=== PATIENT | male | born 1980 | race Caucasian/White ===

== ENCOUNTER 2021-12-13 12:20 | Emergency (ER) | payer MEDICAID, SELFPAY ==
--- NOTE | 2021-12-13 12:22 | ED.URI ---
HPI - URI/Sore Throat General Chief Complaint: Upper Respiratory Infection Stated Complaint: sore throat and tongue lac Time Seen by Provider: 12/13/21 12:22 Source: patient, family and RN notes reviewed History of Present Illness HPI Narrative: Patient is a 41-year-old male who presents the urgent care with his significant other with complaints of sore throat for 1 week and a tongue laceration from a week and a half ago. Patient states he bit the end of his tongue and the laceration seems to be getting larger. Patient states he has been drinking Chloraseptic and using ibuprofen for his sore throat. Reports of subjective fever without nausea or vomiting. Denies of any known exposures. No other acute complaints. No acute distress noted. Patient aware of the plan of care. Some parts of this dictation were generated by voice recognition software and may contain typographical and/or grammatical inaccuracies. Related Data Allergies Allergy/AdvReac Type Severity Reaction Status Date / Time No Known Allergies Allergy Verified 12/13/21 12:37 Review of Systems Review of Systems: CONSTITUTIONAL: Denies fever, chills, or sweats. EYES: Denies visual changes, redness, or discharge. ENT: Denies rhinorrhea, congestion, or otalgia. Reports of a sore throat and a laceration to the tongue CARDIOVASCULAR: Denies chest pain, palpitations, or edema. RESPIRATORY: Denies cough or dyspnea. GASTROINTESTINAL: Denies abdominal pain, nausea, vomiting, or diarrhea. GENITOURINARY: Denies dysuria or hematuria. SKIN: Denies rash or itching. MUSCULOSKELETAL: Denies back pain, joint pain, or myalgia. NEUROLOGIC: Denies headache, numbness, or weakness. All other systems reviewed are negative, except as documented in HPI. PMFSH Comments At the time of my signature, I reviewed and agree with the nursing past medical, surgical, social, and family history. There is no relevant family history pertinent to the patient complaint. Exam Narrative: GENERAL: This is a well-nourished, well-developed patient, in no apparent distress. HEAD: normocephalic, atraumatic. EYES: PERRL. Sclera clear/white. Vision is grossly intact. EARS: External ears normal, auditory canals clear and without drainage, TMs normal without perforation. Hearing grossly intact. NOSE: External nose normal with no obvious nasal discharge, nares without redness, no rhinorrhea. THROAT: Mucous membranes moist, posterior pharynx clear. Pinpoint scattered petechiae to the posterior roof; 0.5 cm x 0.25 cm gaping superficial laceration to the under side tip of the tongue NECK: Neck supple, non-tender without lymphadenopathy CARDIOVASCULAR: Regular rate and rhythm without murmurs, gallops, or rubs. RESPIRATORY: Clear to auscultation. Breath sounds equal bilaterally. No wheezes, rales, or rhonchi. SKIN: warm, intact with no suspicious lesions or rash, good texture and turgor. NEURO: awake, alert, and oriented to person, place and time. There were no obvious focal neurologic abnormalities. EXTREMITIES: No clubbing, cyanosis, or edema. Course Course Level of Care: Express Care Visit Vital Signs Vital signs: Vital Signs Temperature 97.1 F L 12/13/21 12:26 Pulse Rate 84 12/13/21 12:26 Respiratory Rate 18 12/13/21 12:26 Blood Pressure 172/99 H 12/13/21 12:26 Pulse Oximetry 100 12/13/21 12:26 Temperature 97.1 F L 12/13/21 12:26 Pulse Rate 84 12/13/21 12:26 Respiratory Rate 18 12/13/21 12:26 Blood Pressure 172/99 H 12/13/21 12:26 Pulse Oximetry 100 12/13/21 12:26 Reviewed-patient is informed that they may have pre-hypertension or hypertension based on a blood pressure reading in the department. I recommend the patient call the primary care provider listed on their discharge instructions or a physician of their choice this week to arrange follow-up for further evaluation of possible pre-hypertension or hypertension. MDM - URI/Sore Throat MDM Narrative Medical decision megan
[2021-12-13 12:26] VITALS: BP 172/99; PULSE 84; RESP 18; TEMP 36.2; O2SAT 100
== END 2021-12-13 13:05 | disposition home or self-care (01) ==
PROVIDERS: Emergency Provider Nurse Practitioner Family
DX: S01.512A Laceration without foreign body of oral cavity, initial encounter (principal); W50.3XXA Accidental bite by another person, initial encounter; J02.9 Acute pharyngitis, unspecified
CPT/HCPCS: 87081; 87880; 99213; G0463

== ENCOUNTER 2024-11-11 08:44 | Emergency (ER) | payer OTHER, MEDICAID, SELFPAY ==
--- NOTE | ~2024-11-11 | CT_ITS ---
EXAMINATION: CT abdomen pelvis wo con DATE: 11/11/2024 09:37 INDICATION: Right flank pain. TECHNIQUE: Computed tomography (CT) of the abdomen and pelvis was performed without intravenous contr ast. Automated exposure control and iterative reconstruction technique were employed. The dose-length product was 973.20 mGy-cm. COMPARISON: None. FINDINGS: The visualized portions of lung bases demonstrate mild atelectasis. No pleural effusion. Th e heart size is normal. No pericardial effusion. There is a small sliding hiatal hernia. There is mil d bilateral gynecomastia. There is diffuse hepatic steatosis. The gallbladder, spleen, pancreas, adre nal glands, and left kidney are normal. There is a 2 mm stone in right kidney. There is mild right hy dronephrosis and hydroureter. There are two 2 mm stones at right ureterovesicular junction. There are no dilated loops of bowel. The appendix is normal. There are no pathologically enlarged lymph nodes. There is no free intraperitoneal fluid. There is mild thoracic and lumbar spondylosis. IMPRESSION: 1. Two 2 mm stones at right ureterovesicular junction with mild right hydronephrosis and hydroureter. 2. 2 mm nonobstructing right kidney stone. Reviewed, dictated and finalized at location B. IMPRESSION: 1. Two 2 mm stones at right ureterovesicular junction with mild right hydroneph rosis and hydroureter. 2. 2 mm nonobstructing right kidney stone.
[2024-11-11 08:46] VITALS: BP 170/123; PULSE 84; RESP 16; TEMP 36.6; O2SAT 100
--- NOTE | 2024-11-11 08:59 | ED.MALEGU ---
HPI - Male Genitourinary General Chief complaint: Urogenital-Male Stated complaint: flank pain Time Seen by Provider: 11/11/24 08:47 History of Present Illness HPI Narrative: Pt presents with right flank pain radiating to right groin for two days. Pt says the pain is constant but waxes and wanes in severity. Pt denies nausea or vomiting. Pt denies urinary symptoms. Related Data Allergies Allergy/AdvReac Type Severity Reaction Status Date / Time codeine Allergy Hives Verified 11/11/24 08:53 Review of Systems Review of Systems: All systems reviewed & are unremarkable except as noted in HPI and below Exam Const: General: healthy appearing (uncomfortable) Limitations: no limitations Resp: Effort & Inspection: normal respiratory effort Auscultation: clear to auscultation bilaterally Cardio: Rate: regular rate Rhythm: regular rhythm GI: GI Palp: Yes Soft to palpation and No Tenderness to palpation present (GI) Auscultation: normal bowel sounds : General: Yes CVA tenderness on the right Back/Spine/Pelvis: Back: CVA tenderness (right) Skin: General skin exam: normal color Rashes: no rashes Wounds: no wounds Neuro: General: patient oriented x3, moves all extremities and no meningeal signs Speech: normal speech Extrem: General: normal to inspection and no clubbing, cyanosis or edema Psych: Mental Status: mental status grossly normal Affect: normal affect Attitude: cooperative Course Vital Signs Vital signs: Vital Signs Temperature 97.8 F 11/11/24 08:46 Pulse Rate 84 11/11/24 08:46 Respiratory Rate 16 11/11/24 08:46 Blood Pressure 170/123 H 11/11/24 08:46 Pulse Oximetry 100 11/11/24 08:46 Oxygen Delivery Room Air 11/11/24 08:46 Temperature 97.8 F 11/11/24 08:46 Pulse Rate 84 11/11/24 11:07 Respiratory Rate 18 11/11/24 11:07 Blood Pressure 160/110 H 11/11/24 11:07 Pulse Oximetry 98 11/11/24 11:07 Oxygen Delivery Room Air 11/11/24 08:46 MDM - Male Genitourinary MDM Narrative Medical decision making narrative: Pt presents with right flank pain for two days. kidney stone very likely. could be UTi or pyelo, less likely AAA. will get UA labs and CT and treat pain. dilaudid did not help much, toradol helped pain. pt has 2 2mm stone at uvj. serafin send home on pain and nausea meds and flomax with urology follow up. Lab Data 11/11/24 09:05 11/11/24 09:05 Labs: Lab Results 11/11/24 11/11/24 Range/Units 09:05 09:30 WBC 14.6 H (4.5-10.0) K/mm3 RBC 5.29 (4.6-6.20) M/mm3 Hgb 15.7 (14.0-18.0) g/dL Hct 46.7 (42.0-52.0) % MCV 88.3 (80-100) fl MCH 29.7 (26-34) pg MCHC 33.6 (32-36) g/dl RDW 12.5 (11.5-14.5) % Plt Count 231 (150-375) k/mm3 MPV 10.9 H (7.4-10.4) fl Immature Gran % (Auto) 0.4 (0-0.5) % Neut % (Auto) 73.4 H (45.5-73.1) % Lymph % (Auto) 14.9 L (18.3-44.2) % Nash % (Auto) 9.9 H (2.6-8.5) % Eos % (Auto) 1.1 (0-4.4) % Baso % (Auto) 0.3 (0.2-1.2) % Lymph # (Auto) 2.17 (0.9-3.2) K/mm3 [place] # (Auto) 1.4 H (0.1-0.6) K/mm3 Eos # (Auto) 0.2 (0-0.3) K/mm3 Baso # (Auto) 0.0 (0.0-0.1) K/mm3 Abs Immat Gran (auto) 0.06 H (0.00-0.031) K/mm3 Absolute Neuts (auto) 10.7 H (1.3-6.7) K/mm3 Absolute Nucleated RBC 0.000 (0.0-0.012) K/mm3 Nucleated RBC % 0.0 (0.0-0.2) % PT 12.6 (11.1-14.7) Seconds INR 0.9 APTT 25.1 (22.3-36.8) Seconds Sodium 136 L (137-145) mmol/L Potassium 4.0 (3.4-5.0) mmol/L Chloride 100 (98-107) mmol/L Carbon Dioxide 28 (22-30) mmol/L Anion Gap 8 (4-12) mmol/L BUN 14 (9-20) mg/dL Creatinine 1.68 H (0.7-1.3) mg/dL Estim Creat Clear Calc 63 ml/min Estimated GFR 45 L (59 - ) Glucose 92 (65-110) mg/dL Calcium 9.2 (8.4-10.2) mg/dL Total Bilirubin 0.5 (0.2-1.3) mg/dL AST 25 (17-59) U/L ALT 34 (6-50) U/L Alkaline Phosphatase 95 (38-126) U/L Total Protein 7.0 (6.3-8.2) g/dL Albumin 4.2 (3.5-5.1) g/dL Lipase 167 (23-300) U/L Urine Color Yellow (Yellow) Urine Appearance Clear (Clear) Urine pH 7.0 (5.0-9.0) Ur Specific [place] 1.014 (1.001-1.035) Urine Protein Negative (Negative) mg/dL Urine Glucose (UA) Negative (Negative) mg/dL Urine Ketones Negative (Negative) mg/dL Ur Blood (Man) Negative (Negative) Urine Nitrate Negative (Negative) Urine Bilirubin Negative (Negative) Urine Urobilinogen 1.0 (<2.0) mg/dL Leukocyte Esterase Rfl Trace H (Negative) IDA/UL Urine RBC 0-2 (0-2) /hpf Urine WBC 0-5 (0-3) /hpf Ur Squamous Epith Cells None seen (Few) /hpf Urine Bacteria None seen /hpf Urine Casts 0-2 HIV 1&2 Ab/P24 Ag 4thGn Negative (Negative) Discharge Plan Discharge Clinical Impression: Ureterolithiasis Patient Disposition: Home, Self-Care Condition: Improved Instructions: Antibiotic Form, Kidney Stones (ED), How to Strain Your Urine (ED) Patient Language: Croatian Prescriptions: New ondansetron 4 mg tablet,disintegrating 4 mg PO Q8H PRN (Reason: nausea and vomiting) Qty: 14 0RF hydrocodone-acetaminophen 5-325 mg tablet 1 tablet PO Q6H PRN (Reason: pain) Qty: 14 0RF tamsulosin [Flomax] 0.4 mg capsule 0.4 mg PO DAILY Qty: 10 0RF No Action chlorhexidine gluconate 0.12 % mouthwash 15 ml buccal BID Qty: 118 0RF Follow-up/Referrals: Anant Qureshi MD [Physician] - PHYSICIAN,COSMETICS AND TOILETRIES SALESPERSON [Non-Staff] -
[2024-11-11] MEDS: SODIUM CHLORIDE 0.9% IV 1,000 ML 999 ML IV CONT (09:09)
[2024-11-11 09:10] LABS: Basophils Percent Auto 0.3 % (0.2-1.2); Eosinophils Absolute Auto 0.2 K/mm3 (0-0.3); Eosinophils Percent Auto 1.1 % (0-4.4); Hematocrit 46.7 % (42.0-52.0); Hemoglobin 15.7 g/dL (14.0-18.0); Immature Granulocyte Absolute 0.06 K/mm3 (0.00-0.031); Immature Granulocyte Percent A 0.4 % (0-0.5); Lymphocytes Absolute Auto 2.17 K/mm3 (0.9-3.2); Lymphocytes Percent Auto 14.9 % (18.3-44.2); Mean Corpuscular HGB Conc 33.6 g/dl (32-36); Mean Corpuscular Hemoglobin 29.7 pg (26-34); Mean Corpuscular Volume 88.3 fl (80-100); Mean Platelet Volume 10.9 fl (7.4-10.4); Monocytes Absolute Auto 1.4 K/mm3 (0.1-0.6); Monocytes Percent Auto 9.9 % (2.6-8.5); Neutrophils Absolute Auto 10.7 K/mm3 (1.3-6.7); Neutrophils Percent Auto 73.4 % (45.5-73.1); Platelet Count Result 231 k/mm3 (150-375); Red Blood Count 5.29 M/mm3 (4.6-6.20); Red Cell Distribution Width 12.5 % (11.5-14.5); White Blood Count 14.6 K/mm3 (4.5-10.0)
[2024-11-11] MEDS: HYDROmorphone HCL INJ (*CRX) 1 MG/ML SYR IV PUSH ×2 (09:10→11:03)
[2024-11-11] MEDS: ONDANSETRON INJ 4 MG/2 ML VIAL IV PUSH (09:10)
--- OUTSIDE RECORDS SUMMARY | 2024-11-11 09:19 | XMS_ITS | CONTINUITY OF CARE DOCUMENT ---
Author Name janettchloejanet Address Unknown Organization [facility] Address [address] [place] [address] Phone [phone] Care Team Providers Care Senior Telecommunications Engineer Name Role Phone Gini Solorio MD Unavailable [phone] Gini Solorio MD Unavailable INSURANCE PROVIDERS Payer name Policy type / Coverage type [place] red republic[employer] Medicaid 0 [id number] [facility] [id number]
[2024-11-11 09:21] LABS: Alanine Aminotransferase 34 U/L (6-50); Albumin Level 4.2 g/dL (3.5-5.1); Alkaline Phosphatase 95 U/L (38-126); Anion Gap 8 mmol/L (4-12); Aspartate Amino Transferase 25 U/L (17-59); Bilirubin,Total 0.5 mg/dL (0.2-1.3); Blood Urea Nitrogen 14 mg/dL (9-20); Calcium 9.2 mg/dL (8.4-10.2); Carbon Dioxide 28 mmol/L (22-30); Chloride 100 mmol/L (98-107); Estimated CRCL calculation 63 ml/min; Estimated Glomerular Filt Rate 45; Glucose 92 mg/dL (65-110); Lipase 167 U/L (23-300); Sodium 136 mmol/L (137-145)
[2024-11-11 09:24] LABS: INR 0.9; Prothrombin Time 12.6 Seconds (11.1-14.7)
[2024-11-11 09:25] LABS: Partial Thromboplastin Time 25.1 Seconds (22.3-36.8)
[2024-11-11 09:57] LABS: Add Urine Microscopic? YES; Appearance Urine Clear (Clear); Bacteria Urine None Seen /hpf; Bilirubin Urine Negative (Negative); Blood Urine Negative (Negative); Color Urine Yellow (Yellow); Glucose Urine UA Negative (Negative); Ketones Urine Negative (Negative); Leukocyte Esterase Ur Trace LEU/UL (Negative); Nitrate Urine Negative (Negative); Non Pathogenic Casts 0-2; Protein Urine Negative (Negative); RBC Urine 0-2 /hpf (0-2); Specific Grav Ur 1.014 (1.001-1.035); Squamous Epithelial Cell Urine None Seen /hpf (Few); WBC Urine 0-5 /hpf (0-3)
[2024-11-11] MEDS: KETOROLAC 15 MG/ML VIAL (*BKC) IV PUSH (11:03)
[2024-11-11 11:07] VITALS: BP 160/110; PULSE 84; RESP 18; O2SAT 98
--- OUTSIDE RECORDS SUMMARY | 2024-11-11 11:17 | XMS_ITS | CONTINUITY OF CARE DOCUMENT ---
Author Name janettchloejanet Address Unknown Organization [facility] Address [address] [place] [address] Phone [phone] Care Team Providers Care Telegraph Repeater Mechanic Name Role Phone Gini Solorio MD Unavailable [phone] Gini Solorio MD Unavailable INSURANCE PROVIDERS Payer name Policy type / Coverage type [place] red [employer] party [employer] Medicaid 0 [id number] [facility] [place] [id number]
[2024-11-11 14:08] LABS: HIV 1/2 Ab P24 Ag Result Negative (Negative)
== END 2024-11-11 11:49 | disposition home or self-care (01) ==
PROVIDERS: Emergency Provider Emergency Medicine
DX: N13.2 Hydronephrosis with renal and ureteral calculous obstruction (principal)
CPT/HCPCS: 36415; 74176; 80053; 81001; 83690; 85025; 85610; 85730; 86703; 96361; 96374; 96375; 96376; 99284; G0432; J1171; J1885; J2405; J7030

== ENCOUNTER 2025-02-22 21:27 | Emergency (ER) | payer MEDICAID, SELFPAY ==
[2025-02-22 21:32] VITALS: BP 167/91; PULSE 107; RESP 16; TEMP 36.6; O2SAT 100
== END 2025-02-22 23:43 | disposition left against medical advice (07) ==
DX: R21 Rash and other nonspecific skin eruption (principal)
CPT/HCPCS: 99199

== ENCOUNTER 2025-03-06 22:22 | Emergency (ER) | payer BC, SELFPAY | END 2025-03-07 00:57 | disposition left against medical advice (07) | LOC: ANHED 23:53 | DX: Z53.21 Procedure and treatment not carried out due to patient leaving prior to being seen by health care provider (principal) | CPT/HCPCS: 99199 ==

== ENCOUNTER 2025-08-16 13:41 | Emergency (ER) | payer BC, SELFPAY ==
--- NOTE | ~2025-08-16 | XR_ITS ---
EXAMINATION: XR chest 2V, 08/16/2025 14:54 CONTINUITY PERSON HISTORY: sob COMPARISON: No comparisons available. Technique: 2 views obtained. Findings: The lungs are clear, no effusion. No pneumothorax. Heart is normal size. Mediastinal and hilar contours are within normal limits. Bony thorax no acute abnormality. Impression: No acute cardiopulmonary abnormality. Reviewed, dictated and finalized at location P. INUITY PERSON Impression: No acute cardiopulmonary abnormality.
[2025-08-16 13:44] VITALS: BP 213/135; PULSE 90; RESP 20; TEMP 36.3; O2SAT 100
--- NOTE | 2025-08-16 13:54 | ECG_ITS ---
Test Date: 2025-08-16 14:04:25 Measurements Intervals [place] Rate: 75 P: 52 VT: 155 QRS: 31 QRSD: 89 T: 60 QT: 377 QTc: 423 Interpretive Statements SINUS RHYTHM CONSIDER INFERIOR INFARCT, AGE INDETERMINATE BASELINE ARTIFACT- I, III, AVL ABNORMAL ECG No previous ECG available for comparison Electronically Signed On 08-16-2025 15:18:02 [employer] by Jus Cheema D.O.
[2025-08-16 14:08] LABS: Hematocrit 44.3 % (42.0-52.0); Hemoglobin 14.8 g/dL (14.0-18.0); Immature Granulocyte Percent A 0.2 % (0-0.5); Lymphocytes Absolute Auto 2.75 K/mm3 (0.9-3.2); Mean Corpuscular HGB Conc 33.4 g/dl (32-36); Mean Corpuscular Hemoglobin 29.4 pg (26-34); Mean Corpuscular Volume 88.1 fl (80-100); Nucleated Red Blood Cells Absolute Auto 0.000 K/mm3 (0.0-0.012); Nucleated Red Blood Cells Perc 0.0 % (0.0-0.2); Platelet Count Result 227 k/mm3 (150-375); Red Blood Count 5.03 M/mm3 (4.6-6.20); White Blood Count 8.7 K/mm3 (4.5-10.0)
[2025-08-16 14:28] LABS: Alanine Aminotransferase 49 U/L (6-50); Albumin Level 4.1 g/dL (3.5-5.1); Alkaline Phosphatase 98 U/L (38-126); Anion Gap 5 mmol/L (4-12); Aspartate Amino Transferase 33 U/L (17-59); Bilirubin,Total 0.3 mg/dL (0.2-1.3); Blood Urea Nitrogen 15 mg/dL (9-20); Calcium 9.6 mg/dL (8.4-10.2); Carbon Dioxide 32 mmol/L (22-30); Chloride 101 mmol/L (98-107); Estimated CRCL calculation 100 ml/min; Estimated Glomerular Filt Rate > 60; Glucose 103 mg/dL (65-110); Potassium 4.3 mmol/L (3.4-5.0); Sodium 138 mmol/L (137-145); Total Protein 7.5 g/dL (6.3-8.2)
[2025-08-16 15:30] VITALS: BP 194/122; PULSE 87; RESP 18; O2SAT 99
--- NOTE | 2025-08-16 15:32 | ED_ITS ---
HPI - General Adult General Chief complaint: Recheck/Abnormal Lab/Rx <LACEY Prakash - Last Filed: 08/16/25 17:30> Stated complaint: HTN <LACEY Prakash - Last Filed: 08/16/25 17:30> Time Seen by Provider: 08/16/25 14:06 <LACEY Prakash - Last Filed: 08/16/25 17:30> History of Present Illness HPI narrative: 45-year-old male presenting with concerns for high blood pressure. Patient states he has never been given a diagnosis of high blood pressure but he has been running high for a while. He does not a primary care provider. He is reporting no symptoms at this present moment however earlier he is experiencing shortness of breath, diaphoresis, and numbness in his left hand. Denies chest pains/shortness of breath, headache, or dizziness. <LACEY Prakash - Last Filed: 08/16/25 17:30> Related Data Allergies/adverse reactions: Allergies Allergy/AdvReac Type Severity Reaction Status Date / Time codeine Allergy Hives Verified 08/16/25 13:41 <LACEY Prakash - Last Filed: 08/16/25 17:30> Review of Systems 2 Review of Systems: All systems reviewed & are unremarkable except as noted in HPI and below <LACEY Prakash - Last Filed: 08/16/25 17:30> Exam 2 Narrative: GENERAL: No acute distress. HEAD: Normocephalic, atraumatic. EYES: PERRLA and EOMI. ENT: Nares clear, no rhinorrhea or epistaxis. Mucous membranes moist. Oropharynx without tonsillar hypertrophy exudate or other lesions. Bilateral TMs pearly boggs non-bulging NECK: Supple. No adenopathy or masses. No carotid bruits or JVD CHEST: Clear to auscultation. No respiratory distress. No wheezes rales or rhonchi HEART: Regular rate and rhythm. No murmur heard. Normal peripheral pulses. ABDOMEN: Soft, nontender, nondistended, normal active bowel sounds. EXTREMITIES: Normal range of motion. No edema. SKIN: Warm, dry, no rash. NEURO: No focal deficits. Alert and oriented x3. PSYCH: Normal mood and affect <LACEY Prakash - Last Filed: 08/16/25 17:30> Course [employer]/PA Physician Supervision i did discuss the management , agree with the plan <Malick Hernandez MD - Last Filed: 08/16/25 17:15> Vital Signs Vital signs: Vital Signs Temperature 97.3 F L 08/16/25 13:44 Pulse Rate 90 08/16/25 13:44 Respiratory Rate 20 08/16/25 13:44 Blood Pressure 213/135 H 08/16/25 13:44 Pulse Oximetry 100 08/16/25 13:44 Oxygen Delivery Room Air 08/16/25 13:44 Temperature 97.3 F L 08/16/25 13:44 Pulse Rate 83 08/16/25 16:20 Respiratory Rate 18 08/16/25 16:20 Blood Pressure 191/109 H 08/16/25 16:20 Pulse Oximetry 99 08/16/25 16:20 Oxygen Delivery Room Air 08/16/25 13:44 <LACEY Prakash - Last Filed: 08/16/25 17:30> Vital Signs Temperature 97.3 F L 08/16/25 13:44 Pulse Rate 90 08/16/25 13:44 Respiratory Rate 20 08/16/25 13:44 Blood Pressure 213/135 H 08/16/25 13:44 Pulse Oximetry 100 08/16/25 13:44 Oxygen Delivery Room Air 08/16/25 13:44 Temperature 97.3 F L 08/16/25 13:44 Pulse Rate 83 08/16/25 16:20 Respiratory Rate 18 08/16/25 16:20 Blood Pressure 191/109 H 08/16/25 16:20 Pulse Oximetry 99 08/16/25 16:20 Oxygen Delivery Room Air 08/16/25 13:44 <Malick Hernandez MD - Last Filed: 08/16/25 17:15> MDM MDM Narrative Medical decision making narrative: 45-year-old male presenting with concerns for high blood pressure. Patient states he has never been given a diagnosis of high blood pressure but he has been running high for a while. He does not a primary care provider. He is reporting no symptoms at this present moment however earlier he is experiencing shortness of breath, diaphoresis, and numbness in his left hand. Denies chest pains/shortness of breath, headache, or dizziness. Upon my initial assessment patient appears nontoxic. Repeat vitals demonstrated a blood pressure of 175/107. He is denying any symptoms at this moment. Labs within normal limits. Chest x-ray without acute abnormalities. EKG without acute ischemic changes. Neuro exam intact. UA demonstrated no abnormalities. Plan to provide patient with a primary care provider referral. Educated patient on the importance of following up closely with a primary care provider for proper hypertension treatment and follow-up. No evidence of end-organ damage identified. Based on current findings, there is no medical indication for continued emergency department care or admission. Upon reassessment patient is reporting headache but declines any Tylenol. Discussed patient with ER physician Dr. Hernandez who recommended 10 of Norvasc while the patient is here then provide him with an outpatient prescription and advise close follow-up. Educated the patient on side effects to look out for with Norvasc. Patient agrees with discussion and after shared medical decision making agrees with plan of care. All questions were answered to the patient's satisfaction. Given reasons for return. <LACEY Prakash - Last Filed: 08/16/25 17:30> Differential Diagnosis Differential Diagnosis: Differential diagnostic considerations for rechecking abnormal labs include electrolyte disturbance, anemia, positive blood cultures, coagulopathy, encounter for medication refill, encounter for wound check, encounter for removal of sutures. <LACEY Prakash - Last Filed: 08/16/25 17:30> Medical Records I have reviewed the following patient records and this information was taken into consideration when formulating the assessment and plan.: previous labs and previous ER visits <LACEY Prakash - Last Filed: 08/16/25 17:30> Lab Data MDM Lab Attestation statement: I personally reviewed the patient's lab results. <LACEY Prakash - Last Filed: 08/16/25 17:30> Result diagrams: 08/16/25 13:59 08/16/25 13:59 <LACEY Prakash - Last Filed: 08/16/25 17:30> Labs: Lab Results 08/16/25 08/16/25 Range/Units 13:59 15:21 WBC 8.7 (4.5-10.0) K/mm3 RBC 5.03 (4.6-6.20) M/mm3 Hgb 14.8 (14.0-18.0) g/dL Hct 44.3 (42.0-52.0) % MCV 88.1 (80-100) fl MCH 29.4 (26-34) pg MCHC 33.4 (32-36) g/dl RDW 12.9 (11.5-14.5) % Plt Count 227 (150-375) k/mm3 MPV 10.2 (7.4-10.4) fl Immature Gran % (Auto) 0.2 (0-0.5) % Neut % (Auto) 53.6 (45.5-73.1) % Lymph % (Auto) 31.5 (18.3-44.2) % [place] % (Auto) 9.2 H (2.6-8.5) % Eos % (Auto) 4.7 H (0-4.4) % Baso % (Auto) 0.8 (0.2-1.2) % Lymph # (Auto) 2.75 (0.9-3.2) K/mm3 [place] # (Auto) 0.8 H (0.1-0.6) K/mm3 Eos # (Auto) 0.4 H (0-0.3) K/mm3 Baso # (Auto) 0.1 (0.0-0.1) K/mm3 Abs Immat Gran (auto) 0.02 (0.00-0.031) K/mm3 Absolute Neuts (auto) 4.7 (1.3-6.7) K/mm3 Absolute Nucleated RBC 0.000 (0.0-0.012) K/mm3 Nucleated RBC % 0.0 (0.0-0.2) % Sodium 138 (137-145) mmol/L Potassium 4.3 (3.4-5.0) mmol/L Chloride 101 (98-107) mmol/L Carbon Dioxide 32 H (22-30) mmol/L Anion Gap 5 (4-12) mmol/L BUN 15 (9-20) mg/dL Creatinine 1.09 (0.7-1.3) mg/dL Estim Creat Clear Calc 100 ml/min Estimated GFR > 60 (59 - ) Glucose 103 (65-110) mg/dL Calcium 9.6 (8.4-10.2) mg/dL Total Bilirubin 0.3 (0.2-1.3) mg/dL AST 33 (17-59) U/L ALT 49 (6-50) U/L Alkaline Phosphatase 98 (38-126) U/L Total Protein 7.5 (6.3-8.2) g/dL Albumin 4.1 (3.5-5.1) g/dL Urine Color Yellow (Yellow) Urine Appearance Clear (Clear) Urine pH 6.0 (5.0-9.0) Ur Specific [place] 1.022 (1.001-1.035) Urine Protein 1+ H (Negative) mg/dL Urine Glucose (UA) Negative (Negative) mg/dL Urine Ketones Trace H (Negative) mg/dL Ur Blood (Man) Trace (Negative) Urine Nitrate Negative (Negative) Urine Bilirubin Negative (Negative) Urine Urobilinogen 0.2 (<2.0) mg/dL Add Ur Microanalysis Reviewed Leukocyte Esterase Rfl Negative (Negative) IDA/UL Urine RBC 3-5 H (0-2) /hpf Urine WBC 0-5 (0-3) /hpf Ur Squamous Epith Cells None seen (Few) /hpf Urine Bacteria None seen /hpf Urine Casts 6-10 Sperm Presence Present <LACEY Prakash - Last Filed: 08/16/25 17:30> Lab Results 08/16/25 08/16/25 Range/Units 13:59 15:21 WBC 8.7 (4.5-10.0) K/mm3 RBC 5.03 (4.6-6.20) M/mm3 Hgb 14.8 (14.0-18.0) g/dL Hct 44.3 (42.0-52.0) % MCV 88.1 (80-100) fl MCH 29.4 (26-34) pg MCHC 33.4 (32-36) g/dl RDW 12.9 (11.5-14.5) % Plt Count 227 (150-375) k/mm3 MPV 10.2 (7.4-10.4) fl Immature Gran % (Auto) 0.2 (0-0.5) % Neut % (Auto) 53.6 (45.5-73.1) % Lymph % (Auto) 31.5 (18.3-44.2) % [place] % (Auto) 9.2 H (2.6-8.5) % Eos % (Auto) 4.7 H (0-4.4) % Baso % (Auto) 0.8 (0.2-1.2) % Lymph # (Auto) 2.75 (0.9-3.2) K/mm3 [place] # (Auto) 0.8 H (0.1-0.6) K/mm3 Eos # (Auto) 0.4 H (0-0.3) K/mm3 Baso # (Auto) 0.1 (0.0-0.1) K/mm3 Abs Immat Gran (auto) 0.02 (0.00-0.031) K/mm3 Absolute Neuts (auto) 4.7 (1.3-6.7) K/mm3 Absolute Nucleated RBC 0.000 (0.0-0.012) K/mm3 Nucleated RBC % 0.0 (0.0-0.2) % Sodium 138 (137-145) mmol/L Potassium 4.3 (3.4-5.0) mmol/L Chloride 101 (98-107) mmol/L Carbon Dioxide 32 H (22-30) mmol/L Anion Gap 5 (4-12) mmol/L BUN 15 (9-20) mg/dL Creatinine 1.09 (0.7-1.3) mg/dL Estim Creat Clear Calc 100 ml/min Estimated GFR > 60 (59 - ) Glucose 103 (65-110) mg/dL Calcium 9.6 (8.4-10.2) mg/dL Total Bilirubin 0.3 (0.2-1.3) mg/dL AST 33 (17-59) U/L ALT 49 (6-50) U/L Alkaline Phosphatase 98 (38-126) U/L Total Protein 7.5 (6.3-8.2) g/dL Albumin 4.1 (3.5-5.1) g/dL Urine Color Yellow (Yellow) Urine Appearance Clear (Clear) Urine pH 6.0 (5.0-9.0) Ur Specific [place] 1.022 (1.001-1.035) Urine Protein 1+ H (Negative) mg/dL Urine Glucose (UA) Negative (Negative) mg/dL Urine Ketones Trace H (Negative) mg/dL Ur Blood (Man) Trace (Negative) Urine Nitrate Negative (Negative) Urine Bilirubin Negative (Negative) Urine Urobilinogen 0.2 (<2.0) mg/dL Add Ur Microanalysis Reviewed Leukocyte Esterase Rfl Negative (Negative) IDA/UL Urine RBC 3-5 H (0-2) /hpf Urine WBC 0-5 (0-3) /hpf Ur Squamous Epith Cells None seen (Few) /hpf Urine Bacteria None seen /hpf Urine Casts 6-10 Sperm Presence Present <Malick Hernandez MD - Last Filed: 08/16/25 17:15> Imaging Data Attestation: I personally reviewed and interpreted this imaging study as follows: < LACEY Prakash - Last Filed: 08/16/25 17:30> Radiologist's impression: ITS Impressions Chest X-Ray 08/16/25 15:06 Impression: No acute cardiopulmonary abnormality. <LACEY Prakash - Last Filed: 08/16/25 17:30> ITS Impressions Chest X-Ray 08/16/25 15:06 Impression: No acute cardiopulmonary abnormality. <Malick Hernandez MD - Last Filed: 08/16/25 17:15> ECG Data EKG #1: Attestation: I personally reviewed and interpreted this ECG as follows: <LACEY Prakash - Last Filed: 08/16/25 17:30> ECG completion date: 08/16/25 <LACEY Prakash - Last Filed: 08/16/25 17:30> ECG completion time: 14:04 <LACEY Prakash - Last Filed: 08/16/25 17:30> normal rate, sinus rhythm and no acute changes <LACEY Prakash - Last Filed: 08/16/25 17:30> Discharge Plan Discharge Clinical Impression: Hypertension <LACEY Prakash - Last Filed: 08/16/25 17:30> Patient Disposition: Home <LACEY Prakash - Last Filed: 08/16/25 17:30> Condition: Stable <LACEY Prakash - Last Filed: 08/16/25 17:30> Instructions: Hypertension (ED) <LACEY Prakash - Last Filed: 08/16/25 17:30> Additional Instructions: Return to the emergency department if you experience fever, chest pain, shortness of breath, abdominal pain with nausea and vomiting, weakness, numbness/tingling, or any other symptoms that are concerning to you. Take Norvasc as prescribed and discussed. Take your blood pressure once/day at the same time, sitting up, legs on the ground, arm at rest, and feet uncrossed and log it until you are able to see a primary care provider. Stay well hydrated. Follow up with primary care doctor as soon as possible. <LACEY Prakash - Last Filed: 08/16/25 17:30> Patient Language: Faroese <LACEY Prakash Last Filed: 08/16/25 17:30> Prescriptions: New amlodipine 5 mg tablet 5 mg PO DAILY Qty: 30 0RF No Action chlorhexidine gluconate 0.12 % mouthwash 15 ml buccal BID Qty: 118 0RF ondansetron 4 mg tablet,disintegrating 4 mg PO Q8H PRN (Reason: nausea and vomiting) Qty: 14 0RF hydrocodone-acetaminophen 5-325 mg tablet 1 tablet PO Q6H PRN (Reason: pain) Qty: 14 0RF tamsulosin [Flomax] 0.4 mg capsule 0.4 mg PO DAILY Qty: 10 0RF <LACEY Prakash Last Filed: 08/16/25 17:30> Follow-up/Referrals: Cristofer Malone MD [Physician, Family Practice] PHYSICIAN,[employer] [Primary Care Provider, Internal Medicine] <LACEY Prakash - Last Filed: 08/16/25 17:30>
[2025-08-16 15:41] LABS: Add Urine Microscopic? YES; Appearance Urine Clear (Clear); Glucose Urine UA Negative (Negative); Leukocyte Esterase Ur Negative LEU/UL (Negative); Need Manual Microscopic Reviewed; Nitrate Urine Negative (Negative); Specific Grav Ur 1.022 (1.001-1.035)
[2025-08-16 15:44] LABS: Spermatozoa Urine PRESENT
[2025-08-16 16:20] VITALS: BP 191/109; PULSE 83; RESP 18; O2SAT 99
== END 2025-08-16 17:20 | disposition home or self-care (01) ==
PROVIDERS: Emergency Medicine
DX: I10 Essential (primary) hypertension (principal)
CPT/HCPCS: 36415; 71046; 80053; 81001; 85025; 93005; 99284; A9270